=== PATIENT | male | born 1975 | race Caucasian/White ===

== ENCOUNTER 2017-02-15 12:27 | Emergency (ER) | payer OTHER, BC ==
[~2017-02-15] VITALS: Ht 177.8 cm; Wt 92.5 kg
[~2017-02-15 12:27] MED LIST: GABA1CAP5 PO; HYDR-3983 PO; HYZ/50125 PO; TIZA4CAP PO
[2017-02-15 12:32] VITALS: TEMP 37.1; Ht 177.8 cm; Wt 92.5 kg
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
--- NOTE | 2017-02-15 14:03 | DIAGNOSTIC IMAGING REPORT ---
HEAD CT NONCONTRAST CT DOSE: 614.27 mGy.cm HISTORY: Head injury. EVAL FOR TRAUMA TECHNIQUE: Multiaxial CT images of the head were performed without the use of intravenous contrast. Automated exposure control was utilized for this study. A dose lowering technique was utilized adhering to the principles of ALARA. Comparison: None. Findings: The paranasal sinuses and mastoid air cells are clear. The calvarium and skull base are intact. The ventricles and sulci are within normal limits. There is no mass, hematoma, midline shift, or acute infarct. Left supraorbital/frontal scalp swelling. Impression: No acute intracranial abnormality. Left frontal scalp swelling. Electronically signed by: Som Moore M.D. 02/15/2017 2:02 PM Dictated Date/Time: 02/15/2017 2:00 PM
[2017-02-15 14:41] VITALS: BP 152/102; PULSE 116; O2SAT 96
== END 2017-02-15 14:43 | disposition home or self-care (01) ==
LOC: EDBD 12:27 → C.EDC 12:28
DX: S06.0X0A Concussion without loss of consciousness, initial encounter (principal); S00.93XA Contusion of unspecified part of head, initial encounter; S50.02XA Contusion of left elbow, initial encounter; V98.3XXA Accident to, on or involving ski lift, initial encounter; I10 Essential (primary) hypertension; Z87.891 Personal history of nicotine dependence

== ENCOUNTER → 2017-06-26 | Outpatient (CLI) | payer BC ==
[~2017-06-26] MED LIST changes: +GABA-1220 PO; -GABA1CAP5 PO
[2017-06-26 13:30] LABS: BLOOD UREA NITROGEN 21 mg/dl (7-18); CARBON DIOXIDE 27 mmol/L (21-32); CREATININE 1.26 mg/dl (0.60-1.40); GLUCOSE 104 mg/dl (70-99); POTASSIUM 4.8 mmol/L (3.5-5.1); SODIUM 138 mmol/L (136-145)
== END | disposition home or self-care (01) ==
LOC: C.LABMFLN 08:33
PROVIDERS: ATTEND Family Medicine
DX: I10 Essential (primary) hypertension (principal)

== ENCOUNTER 2017-10-24 05:42 | Day surgery (SDC) | payer BC ==
[2017-10-16 12:03] VITALS: BMI 29.0
--- NOTE | 2017-10-21 16:26 | PAT Medication Instructions ---
Service Date Oct 21, 2017. Current Home Medication List Amlodipine (Norvasc), 2.5 MG PO QAM Losartan Potassium (Cozaar), 100 MG PO HS Medication Instructions For Your Scheduled Surgery - Take the following medications the morning of surgery with a sip of water: Amlodipine (Norvasc), 2.5 MG PO QAM - Take the following medications as scheduled the night before surgery: Losartan Potassium (Cozaar), 100 MG PO HS If you have any questions please call us at [phone] or [phone] or [phone]
[2017-10-21 17:11] LABS: BASO % 0.3 %; BASO ABS # 0.02 K/uL (0-0.2); EOS % 0.4 %; EOS ABS # 0.03 K/uL (0-0.5); HEMATOCRIT 43.3 % (42-52); HEMOGLOBIN 15.3 g/dL (14.0-18.0); IG# 0.02 K/uL (0.00-0.02); LYMPH % 40.7 %; LYMPH ABS # 2.77 K/uL (1.2-3.4); MEAN CELL VOLUME 89.1 fL (80-100); MEAN CORPUSCULAR HEMOGLOBIN 31.5 pg (25-34); MEAN CORPUSCULAR HGB CONC 35.3 g/dl (32-36); MEAN PLATELET VOLUME 11.2 fL (7.4-10.4); MONO % 8.1 %; MONO ABS # 0.55 K/uL (0.11-0.59); NEUT % 50.2 %; NEUT ABS # 3.42 K/uL (1.4-6.5); PLATELET COUNT 221 K/uL (130-400); RED CELL DISTRIBUTION WIDTH CV 12.6 % (11.5-14.5); RED CELL DISTRIBUTION WIDTH SD 40.5 fL (36.4-46.3); WHITE BLOOD COUNT 6.81 K/uL (4.8-10.8)
[2017-10-21 17:23] LABS: CALCIUM 9.5 mg/dl (8.5-10.1); CREATININE 1.17 mg/dl (0.60-1.40)
--- NOTE | 2017-10-22 15:48 | History and Physical ---
History & Physical Date Oct 22, 2017. Chief Complaint pain and drainage left ear History of Present Illness The patient is a 42 year old male with complaints of cholesteatoma left ear Additional History Hepatic Disease: No Endocrine Disorder: No Kidney Disease: No Hypertension: No Heart Disease: No Bleeding Tendencies: No Infectious Diseases: No Allergies Coded Allergies: No Known Allergies (Unverified , 10/16/17) Home Medications Scheduled Amlodipine (Norvasc), 2.5 MG PO QAM Losartan Potassium (Cozaar), 100 MG PO HS Physical Examination Skin: warm/dry, no rash Eyes: normal inspection, EOMI, sclerae normal ENT: normal ENT inspection, pharynx normal Head: normocephalic, atraumatic Neck: supple, no adenopathy, trachea midline Respiratory/Chest: lungs clear, normal breath sounds, no respiratory distress Cardiovascular: regular rate, rhythm, no edema, no murmur Abdomen / GI: normal bowel sounds, non tender Back: normal inspection Extremities: normal inspection, normal range of motion Neurologic/Psych: no motor/sensory deficits, alert, normal reflexes, oriented x 3 Diagnosis cholesteatoma left ear Plan of Treatment tympanomastoidectomy left
[~2017-10-24] VITALS: Ht 177.8 cm; Wt 94.3 kg
[~2017-10-24 05:42] MED LIST changes: +AMLO2.5T PO; -GABA-1220 PO; -HYDR-3983 PO; -HYZ/50125 PO; +LOSA1TAB38 PO; -TIZA4CAP PO
[2017-10-24 05:56] VITALS: BP 150/100; PULSE 92; TEMP 36.9; O2SAT 97; Ht 177.8 cm; Wt 94.3 kg
[2017-10-24] MEDS ORDERED: CEFAZOLIN 2000MG IV PUSH 15 ML IV SCH (06:00)
[2017-10-24] MEDS ORDERED: LACTATED RINGER'S 1000ML 1,000 ML IV SCH (06:00)
[2017-10-24] MEDS ORDERED: FENTANYL CITRATE INJ 50 MCG/1 ML 2 ML VIAL ONE ×3 (06:37→10:01)
[2017-10-24] MEDS ORDERED: MIDAZOLAM HCL 1 MG/ML 2ML VIAL ONE (06:37)
[2017-10-24] MEDS ORDERED: ONDANSETRON INJ 2 MG/ML 2 ML VIAL ONE (06:46)
[2017-10-24] MEDS ORDERED: DEXAMETHASONE SOD INJ 4 MG/ML VIAL ONE (06:46)
[2017-10-24] MEDS ORDERED: LIDOCAINE HCL 2% 2 ML VIAL (20MG/ML) ONE (06:46)
[2017-10-24] MEDS ORDERED: PROPOFOL IV EMULSION 10 MG/ML 20 ML VIAL ONE ×2 (06:46→09:46)
--- NOTE | 2017-10-24 06:59 | History & Physical Bridge Note ---
H&P Re-Evaluation Bridge Note: I have examined the patient, reviewed the History & Physical and in the interval since the performance of the History & Physical I have noted the following changes of clinical significance: No changes noted
[2017-10-24] MEDS ORDERED: NEOMYCIN/POLYMYX/HYDROCORT OT SUSP 10 ML BTL ONE (07:04)
[2017-10-24] MEDS ORDERED: EpINEphrine HCL INJ 1 MG/ML 1ML SYRINGE ONE (07:05)
[2017-10-24] MEDS ORDERED: LIDO 2%/EPINEPHRINE 1:100000 20 ML VIAL ONE (07:05)
[2017-10-24] MEDS ORDERED: GELATIN SPONGE 12-7MM ONE (07:05)
[2017-10-24] MEDS ORDERED: NEOMYC/POLYMYX/BACITR/HC OP OI 3.5 GM TUBE ONE (07:05)
[2017-10-24] MEDS ORDERED: ROCURONIUM BROMIDE 10 MG/ML 5 ML VIAL ONE (07:42)
[2017-10-24] MEDS ORDERED: EpHEDrine SULFATE INJ 50 MG/ML AMP ONE (07:54)
[2017-10-24] MEDS ORDERED: FENTANYL CITRATE INJ 50 MCG/1 ML 2 ML VIAL IV PRN (08:30)
[2017-10-24] MEDS ORDERED: ATROPINE SULFATE 0.1 MG/ML 5ML SYR IV PRN (08:30)
[2017-10-24] MEDS ORDERED: PROMETHAZINE HCL INJ 6.25 MG in SODIUM CHLORIDE 0.9% 50ML 50 ML IV PRN (08:30)
[2017-10-24] MEDS ORDERED: EpHEDrine SULFATE INJ 50 MG/ML AMP IV PRN (08:30)
[2017-10-24] MEDS ORDERED: ONDANSETRON INJ 2 MG/ML 2 ML VIAL IV PRN (08:30)
[2017-10-24] MEDS ORDERED: NEOSTIGMINE METHYLSULFATE 5 MG/5 ML SYR ONE (08:34)
[2017-10-24] MEDS ORDERED: GLYCOPYRROLATE INJ 0.2 MG/ML VIAL ONE (08:34)
[2017-10-24] MEDS ORDERED: SODIUM CHLORIDE 0.9% 1000ML 1,000 ML IV SCH (10:12)
[2017-10-24] MEDS ORDERED: OXYC-57 PO (10:13)
--- NOTE | 2017-10-24 10:14 | Discharge Instructions-SurgCtr ---
Discharge Instructions Date of Service Oct 24, 2017. Visit Reason for Visit: Left Cholesteatoma #3 Discharge Discharge Diagnosis / Problem: same Discharge Goals Goal(s): Therapeutic intervention Activity Recommendations Activity Limitations: per Instructions/Follow-up section Anesthesia . Post Anesthesia Instructions: If you have had General Anesthesia or IV Sedation: * Do not drive today. * Resume driving when surgeon permits. * Do not make important decisions or sign legal documents today. * Call surgeon for: 1. Temperature elevations greater than 101 degrees F. 2. Uncontrollable pain. 3. Excessive bleeding. 4. Persistent nausea and vomiting. 5. Medication intolerance (nausea, vomiting or rash). * For nausea and vomiting use only clear liquids such as: tea, soda, bouillon until nausea subsides, then gradually increase diet as tolerated. * If you have any concerns or questions, call your surgeon's office. If physician is unavailable and it is an emergency, call 911 or go to the nearest emergency room. . Instructions / Follow-Up Instructions / Follow-Up ACTIVITY RECOMMENDATIONS: No limitations OVER THE COUNTER MEDICATIONS: Continue any other previous medications unless otherwise indicated by your surgeon. * You may use Tylenol for mild pain as per bottle instructions. SPECIAL CARE INSTRUCTIONS: * Keep operative ear dry. * Change cotton balls 4 times per day. Leave packing in ear. * Sneeze with your mouth open. * Do not blow your nose. Sniff back instead. * Please call with any increasing pain, increasing drainage, active bleeding, redness and/or swelling, or any concerns. Dr. Koch's office number is . FOLLOW UP VISIT: If not already scheduled, please call to schedule follow-up appointment with Dr. Koch. Diet Recommendations Home Diet: no limitations Procedures Procedures Performed: Left Tympanomastoidectomy; Baloon Dilitation of Left Eustachian Tube Pending Studies Studies pending at discharge: no Medical Emergencies . Who to Call and When: Medical Emergencies: If at any time you feel your situation is an emergency, please call 911 immediately. . Non-Emergent Contact Non-Emergency issues call your: Primary Care Provider . . "Provider Documentation" section prepared by Maricarmen Koch. . [place] Drug Monitoring Program Search Results: no issues identified
[2017-10-24] MEDS ORDERED: OXYCODONE/ACETAMINOPHEN 5-325 TAB PO PRN (10:15)
--- NOTE | 2017-10-24 10:15 | [facility] Post Operative Brief Note ---
Immediate Operative Summary Operative Date Oct 24, 2017. Pre-Operative Diagnosis cholesteatoma left ear Post-Operative Diagnosis cholesteatoma left ear Procedure(s) Performed Left Tympanomastoidectomy; Baloon Dilitation of Left Eustachian Tube Surgeon Dr. Koch Special Delivery Worker Surgeon(s) none Estimated Blood Loss 30mL Findings Consistent with Post-Op Diagnosis Specimens A: Left Ear Cholesteatoma Drains None Anesthesia Type General Complication(s) none Disposition Accompanied Pt To Recover: yes Disposition: Recovery Room / PACU Overlapping Procedure I was present for: the critical portions of procedure. I was immediately available: during the entire case
--- NOTE | 2017-10-24 11:06 | Anesthesiology Progress Note ---
Anesthesia Post Op Note Date & Time Oct 24, 2017 at 11:06 Vital Signs Pain Intensity: 2 Vital Signs Past 12 Hours Date Time Temp Pulse Resp B/P (MAP) Pulse Ox O2 Delivery O2 Flow Rate FiO2 10/24/17 11:00 86 16 130/80 (92) 93 Room Air 10/24/17 10:50 36.4 86 16 127/68 (82) 93 Room Air 10/24/17 10:40 91 16 114/71 (76) 96 Oxymask 10 10/24/17 10:30 91 16 98/72 (76) 96 Oxymask 10 10/24/17 10:22 36.4 96 16 106/59 97 Oxymask 10 10/24/17 05:56 36.9 92 18 150/100 (117) 97 Room Air Notes Mental Status: alert / awake / arousable, participated in evaluation Pt Amnestic to Procedure: Yes Nausea / Vomiting: adequately controlled Pain: adequately controlled Airway Patency, RR, SpO2: stable & adequate BP & HR: stable & adequate Hydration State: stable & adequate Anesthetic Complications: no major complications apparent
[2017-10-24 11:10] VITALS: BP 127/77; PULSE 85; TEMP 36.7; O2SAT 94
[2017-10-24] MEDS: OXYCODONE/ACETAMINOPHEN 5-325 TAB PO PRN ×2 (11:27→12:07)
[2017-10-24 11:40] VITALS: BP 129/81; PULSE 95; TEMP 36.7; O2SAT 96
--- NOTE | 2017-10-24 12:36 | OPERATIVE REPORT ---
DATE OF OPERATION: 10/24/2017 PREOPERATIVE DIAGNOSIS: Cholesteatoma, left ear and mastoid. POSTOPERATIVE DIAGNOSIS: Cholesteatoma, left ear and mastoid. PROCEDURE: Tympanomastoidectomy of the intact wall, facial recess approach of the left ear. SURGEON: Dr. Koch. ANESTHESIA: General endotracheal. COMPLICATIONS: None. BLOOD LOSS: 30 mL. HISTORY: This 42-year-old gentleman presented with a long history of recurrent chronic otitis media, found to have a cholesteatoma of the left ear and mastoid. DESCRIPTION OF PROCEDURE: The patient brought to the operating room and placed in supine position. General endotracheal anesthesia was induced. Prepped with Betadine scrub and paint and draped in usual sterile manner. The canal and postauricular area were injected with 2% Xylocaine with 1:100,000 strength epinephrine. The canal incision was made at 11 o'clock anteriorly and at 6 o'clock inferiorly and then connected across the posterior and superior canal wall using the Esmeralda blade. Tympanomeatal flap was elevated using the round knife and the Pabloroadelitajo scissors. The middle ear space was entered in the hypotympanum and elevation was continued superiorly. Chorda tympani nerve was identified and preserved through the entire procedure. Cholesteatoma was found in the attic which extended into the mastoid. Therefore, at this point, the postauricular incision was made, carried down through the skin and subcutaneous layer exposing the periosteum and the temporalis fascia. A piece of temporalis fascia was harvested and set aside for use later in the fascia press. The periosteal incision was made in the shape of a 7 using the 15 blade and then elevated using the Lempert and then the freer elevator elevating the Ranjan flap in continuity, retracting the ear anteriorly with an umbilical tape and self-retaining retractor exposing the middle ear and exposing the mastoid. Cortical mastoidectomy was performed using the drill at first a 3 mm drill bit and then the 1.5 mm drill bit exposing the sinodural angle extending the mastoidectomy through the thickened mastoid bone into the mastoid antrum going through the Ranjan septum to open up the mastoid cavity, which was filled with cholesteatoma. At this point, the cavity was widened to all edges and then the facial recess was opened noticing the incus to be intact and mobile. Continued dissection anteriorly to expose the malleoincudal joint noticing the cholesteatoma to extend into the facial recess and over the head of the malleus. At this point, the cholesteatoma in the mastoid antrum was tight dissected free using the Morales, the Kalie and the right angle picks. The residual cholesteatoma in the facial recess was dissected free from both sides of the ear canal using the Morales and using the [place] and using the right angle picks. In this manner, the entire cholesteatoma was removed and peeled away from the lateral process of the malleus and the head of the malleus and the body of the incus and reflected into the middle ear space and removed. At this point, the attic area was filled with small pieces of Gelfoam and the bone burt, which was previously harvested, was placed on top of the Gelfoam bed in a thin layer and then the temporalis fascia was placed on top of this Gelfoam bed along with the bone burt covering all edges of the attic perforation. The tympanomeatal flap was reflected back into his original position and the mastoid cavity was closed with interrupted 4-0 Vicryl sutures on the periosteum, interrupted 4-0 Vicryl sutures on the subcutaneous layer and a continuous 4-0 nylon suture on the skin layer. A mastoid dressing was placed. The patient was tolerated the procedure well and was taken to the recovery area in satisfactory condition. I attest to the content of the Intraoperative Record and any orders documented therein. Any exception s are noted below.
== END 2017-10-24 12:38 | disposition home or self-care (01) ==
LOC: C.ACU 05:42
PROVIDERS: ATTEND Otolaryngology
DX: H71.92 Unspecified cholesteatoma, left ear (principal); H71.22 Cholesteatoma of mastoid, left ear; I10 Essential (primary) hypertension; Z87.891 Personal history of nicotine dependence; M19.90 Unspecified osteoarthritis, unspecified site